=== PATIENT | male | born 2000 | race Caucasian/White ===

== ENCOUNTER 2020-04-15 21:23 | Inpatient (IN) | payer BC ==
[~2020-04-15] VITALS: Ht 167.6 cm; Wt 67.0 kg
[2020-04-15 21:47] VITALS: BP 135/61
[2020-04-15] MEDS ORDERED: TOPAMAX100 MG PO (21:51)
[2020-04-15 23:22] LABS: ABSOLUTE LYMPHOCYTES 0.9 thou/uL (0.8-5.3); ABSOLUTE MONOCYTES 1.4 thou/uL (0.0-1.2); ABSOLUTE NEUTROPHILS 12.4 thou/uL (1.6-8.1); BASOPHILS 0.2 %; EOSINOPHILS 0.2 %; HEMATOCRIT 40.6 % (42.0-52.0); HEMOGLOBIN 14.1 gm/dL (14.0-18.0); MCH 32.4 pg (26.0-34.0); MCHC 34.8 g/dL (28.0-37.0); MCV 93.1 fL (80.0-100.0); MONOCYTES 9.5 %; MPV 7.4 fl. (7.2-11.1); NUCLEATED RBCS 0 /100WBC; PLATELET COUNT* 272 thou/uL (150-400); POLYS 84.1 %; RBC 4.36 mil/uL (4.50-6.00); WBC 14.8 thou/uL (4.0-11.0)
[2020-04-15 23:32] LABS: CALCIUM 8.8 mg/dL (8.5-10.1); CREATININE 1.1 mg/dL (0.6-1.3); POTASSIUM 3.3 mmol/L (3.5-5.1)
[2020-04-15 23:46] LABS: ALBUMIN 3.4 g/dL (3.4-5.0); TOTAL BILIRUBIN 0.4 mg/dL (<0.1-1.0); TOTAL PROTEIN 7.5 g/dL (6.4-8.2)
[2020-04-16 02:57] VITALS: BP 110/79
[2020-04-16 03:30] VITALS: BP 107/63
[2020-04-16 08:10] VITALS: BP 95/46
[2020-04-16 15:00] VITALS: BP 96/52
[2020-04-16 20:10] VITALS: BP 103/55
[2020-04-16 22:00] VITALS: BP 100/46
[2020-04-17 02:40] VITALS: BP 93/47
[2020-04-17 05:37] LABS: ABSOLUTE EOSINOPHILS 0.1 thou/uL (0.0-0.7); ABSOLUTE LYMPHOCYTES 1.6 thou/uL (0.8-5.3); ABSOLUTE MONOCYTES 0.9 thou/uL (0.0-1.2); ABSOLUTE NEUTROPHILS 8.9 thou/uL (1.6-8.1); BASOPHILS 0.3 %; EOSINOPHILS 1.1 %; HEMATOCRIT 40.8 % (42.0-52.0); HEMOGLOBIN 13.9 gm/dL (14.0-18.0); LYMPHOCYTES 13.8 %; MCH 32.3 pg (26.0-34.0); MCHC 34.1 g/dL (28.0-37.0); MCV 94.9 fL (80.0-100.0); MONOCYTES 7.6 %; MPV 7.3 fl. (7.2-11.1); NUCLEATED RBCS 0 /100WBC; PLATELET COUNT* 261 thou/uL (150-400); POLYS 77.2 %; RDW-CV 12.8 % (10.5-14.5); WBC 11.5 thou/uL (4.0-11.0)
[2020-04-17 05:54] LABS: CALCIUM 8.5 mg/dL (8.5-10.1); CREATININE 0.9 mg/dL (0.6-1.3); POTASSIUM 4.6 mmol/L (3.5-5.1)
[2020-04-17 17:55] VITALS: BP 94/54
[2020-04-17 19:30] VITALS: BP 103/56
[2020-04-18 04:58] LABS: ABSOLUTE EOSINOPHILS 0.1 thou/uL (0.0-0.7); ABSOLUTE LYMPHOCYTES 1.3 thou/uL (0.8-5.3); ABSOLUTE MONOCYTES 1.1 thou/uL (0.0-1.2); BASOPHILS 0.4 %; EOSINOPHILS 1.4 %; HEMATOCRIT 39.8 % (42.0-52.0); HEMOGLOBIN 13.8 gm/dL (14.0-18.0); LYMPHOCYTES 12.2 %; MCH 32.6 pg (26.0-34.0); MCHC 34.7 g/dL (28.0-37.0); MCV 93.8 fL (80.0-100.0); MPV 7.1 fl. (7.2-11.1); NUCLEATED RBCS 0 /100WBC; PLATELET COUNT* 305 thou/uL (150-400); RBC 4.25 mil/uL (4.50-6.00); RDW-CV 12.8 % (10.5-14.5); WBC 10.5 thou/uL (4.0-11.0)
[2020-04-18 05:06] LABS: CALCIUM 8.6 mg/dL (8.5-10.1); POTASSIUM 4.1 mmol/L (3.5-5.1)
[2020-04-18 09:01] VITALS: BP 97/53
[2020-04-18 17:05] VITALS: BP 142/60
[2020-04-18 20:25] VITALS: BP 91/53
[2020-04-19 05:23] LABS: CALCIUM 8.2 mg/dL (8.5-10.1); POTASSIUM 4.1 mmol/L (3.5-5.1)
[2020-04-19 08:39] VITALS: BP 89/54
[2020-04-19] MEDS ORDERED: FLEXERIL PO (11:10)
[2020-04-19] MEDS ORDERED: IBUPROFEN 800800 M1 PO (11:10)
[2020-04-19] MEDS ORDERED: FLAGYL500 M1 PO (11:10)
[2020-04-19] MEDS ORDERED: PAIN RELIEVER500 MG PO (11:10)
[2020-04-19] MEDS ORDERED: KEFLEX500 M1 PO (11:10)
[2020-04-19] MEDS ORDERED: HYDROCODON-ACE1 EAC7 PO (11:10)
[2020-04-19 11:40] VITALS: BP 89/54
== END 2020-04-19 12:48 | disposition home or self-care (01) | DRG 603 ==
LOC: M.ERS 21:23 → M.TBA-ER 04-16 01:17 → M.ORTHSURG 04-16 03:04
PROVIDERS: Emergency Medicine; Internal Medicine; ADMIT Internal Medicine; ATTEND Internal Medicine
PROC: 0H98XZZ Drainage of Buttock Skin, External Approach (ICD-10-PCS; principal; 2020-04-16)
DX: L03.317 Cellulitis of buttock (principal); L02.214 Cutaneous abscess of groin; L02.31 Cutaneous abscess of buttock; G43.909 Migraine, unspecified, not intractable, without status migrainosus; M54.5 Low back pain; Z03.818 Encounter for observation for suspected exposure to other biological agents ruled out; Z88.8 Allergy status to other drugs, medicaments and biological substances